=== PATIENT | male | born 1965 | race Caucasian/White ===

== ENCOUNTER 2020-09-28 22:17 | Emergency (ER) | payer BC ==
[~2020-09-28] VITALS: Ht 190.5 cm; Wt 95.2 kg
[~2020-09-28 22:17] MED LIST: Fish Oil 10001000 MG
[2020-09-29] MEDS ORDERED: CYCL10 PO (00:05)
[2020-09-29] MEDS ORDERED: LIDO700A20 TOP (00:05)
== END 2020-09-29 00:39 | disposition home or self-care (01) ==
LOC: ER 22:17
DX: M54.42 Lumbago with sciatica, left side (principal)
CPT/HCPCS: 96372; 99283-25; A9270; J1170; J1885

== ENCOUNTER 2024-09-06 07:03 | Day surgery (SDC) | payer BC ==
[2024-09-06] VITALS (16 sets, daily range): BP systolic 95–128; BP diastolic 66–94
[~2024-09-06] VITALS: Ht 190.5 cm; Wt 101.4 kg
[~2024-09-06 07:03] MED LIST changes: +CYCL10 PO; +LIDO700A20 TOP; +NS 500 ML IV SCH
--- NOTE | 2024-09-06 07:36 | NUR ---
Ambulatory in Day Surgery. History, Chart, Medications and Allergies reviewed before start of procedure. Lungs clear T/O to Auscultation. Patient confirms NPO status and agrees with scheduled surgery. Pre-Op teaching done. Pt verbalizes understanding. Patient States Post-Procedure ride home has been arranged.
[2024-09-06] MEDS ORDERED: propofoL 40 ML IV ONE (07:49)
--- NOTE | 2024-09-06 07:58 | NUR ---
09/06/24 [id number] Joshua Turner CONFIRMED AND REVIEWED H&P, MEDCICATIONS, ALLERGIES, MEDICAL HISTORY, RESPIRATORY HISTORY, VITAL SIGNS, 3-LEAD EKG, CONSENTS, AND PHYSICIAN ORDERS. PATIENT CONFIRMS NPO STATUS AND AGREES WITH SCHEDULED PROCEDURE. MONITOR INTACT WITH CONTINUOUS PULSE OXIMETRY, CAPNOGRAPHY, 3-LEAD EKG, INTERMITTENT BP. SUPPLEMENTAL O2 TO BE TITRATED THROUGHOUT PROCEDURE TO MAINTAIN O2 SATURATION ABOVE 90%. PATIENT DETERMINED TO BE ASA APPROPRIATE FOR PROPOFOL SEDATION PRIOR TO START OF PROCEDURE BY DR. LAYTON.
--- NOTE | 2024-09-06 08:56 | NUR ---
Discharge instructions reviewed with patient. Patient verbalizes understanding. Copy given to patient to take home. Patient up to Ambulate independently. Gait steady.
== END 2024-09-06 08:58 | disposition home or self-care (01) ==
LOC: ORSCMMR 07:03 → ORD 08:00 → ORSCMMR 08:00
PROVIDERS: Internal Medicine Gastroenterology
PROC: 0DBL8ZX Excision of Transverse Colon, Via Natural or Artificial Opening Endoscopic, Diagnostic (ICD-10-PCS; principal; 2024-09-06 08:00)
DX: Z12.11 Encounter for screening for malignant neoplasm of colon (principal); Z86.0101 Personal history of adenomatous and serrated colon polyps; K63.5 Polyp of colon; K57.30 Diverticulosis of large intestine without perforation or abscess without bleeding
CPT/HCPCS: 88305; J2704; J7040